=== PATIENT | female | born 1980 | race Two or more races ===

== ENCOUNTER 2024-05-29 09:02 | Emergency (ER) | payer MEDICAID, SELFPAY ==
[2024-05-29 09:24] VITALS: BP 133/97; PULSE 87; RESP 20; TEMP 37.6; O2SAT 97
--- NOTE | 2024-05-29 09:35 | XR_ITS ---
Examination: PA lateral chest 2 views TECHNIQUE: Upright AP lateral chest 2 views Exam date and time: May 29, 2024 0952 hours Comparison September 21, 2023 INDICATIONS: Coughing shortness of breath beginning 2 days ago. FINDINGS: Mild accentuation basilar bronchovascular markings No lobar pneumonia Normal heart size IMPRESSION: Basilar bronchitis pattern
--- NOTE | 2024-05-29 10:57 | EDNOTE_ITS ---
Upper Respiratory Inf. RME/HPI General Chief Complaint: Shortness of Breath/Dyspnea Stated Complaint: DIFFICULTY BREATHING, HOARSE/SORE THROAT Time Seen by Provider: 05/29/24 09:35 Arrival date/time: 05/29/24 09:02 43-year-old female presents to the emergency department complains of sore throat cough congestion runny nose patient reports symptoms ongoing for last couple of days Limitations: no limitations Related Data Previous Rx's ?Medication ?Instructions ?Recorded hydroxyzine pamoate 25 mg capsule 25 mg PO TID PRN anxiety #30 caps 07/21/19 (Vistaril) diclofenac sodium 75 mg 75 mg PO BID PRN pain #60 tabs 08/02/21 tablet,delayed release dicyclomine 20 mg tablet 20 mg PO TID PRN abdominal pain 07/17/23 #20 tabs sennosides 8.6 mg-docusate sodium 1 tab-cap PO QDAY PRN constipation 07/17/23 50 mg tablet (Colace 2-In-1) #20 tabs meclizine 25 mg tablet 25 mg PO QDAY PRN dizziness #14 09/21/23 tabs ondansetron HCl 4 mg tablet 4 mg PO Q8H #14 tabs 09/21/23 benzonatate 100 mg capsule 100 mg PO TID #14 caps 05/29/24 ibuprofen 600 mg tablet 600 mg PO Q6H #30 tabs 05/29/24 prednisone 10 mg tablet 30 mg (3 x 10 mg) PO BID 3 days 05/29/24 #18 tabs Allergies Allergy/AdvReac Type Severity Reaction Status Date / Time hydromorphone Allergy Intermediate Palpitation Verified 05/29/24 09:04 s Review of Systems Review of Systems Systems Reviewed: All systems reviewed, normal except as documented Constitutional Constitutional: Reports system reviewed and no additional complaints, except as documented, Denies fever(s) and Denies headache(s) Eyes Eyes: Reports system reviewed and no additional complaints, except as documented and Denies blurry vision ENT Ears, Nose, Mouth, and Throat: Reports system reviewed and no additional complaints, except as documented, Denies headache(s), Reports nasal congestion, Reports nasal discharge, Denies sinus pain, Denies sinus pressure, Reports sore throat and Denies vertigo Cardiovascular Cardiovascular: Reports system reviewed and no additional complaints, except as documented, Denies chest pain and Denies dyspnea Respiratory Respiratory: Reports system reviewed and no additional complaints, except as documented, Denies chest congestion, Denies cough and Denies dyspnea Gastrointestinal Gastrointestinal: Reports system reviewed and no additional complaints, except as documented and Denies abdominal pain Integumentary/Breasts Skin/Breast: Reports system reviewed and no additional complaints, except as documented and Denies rash Neurologic Neurologic: Reports system reviewed and no additional complaints, except as documented, Reports as per HPI, Denies headache(s) and Denies vertigo Past Medical History Past Medical History NEUROLOGIC: Negative Neurological Disorders CARDIAC: Negative Cardiac Disorders or Congestive Heart Failure RESPIRATORY: Negative Chronic Obstructive Pulmonary Disease (COPD) or Asthma GENITOURINARY: Positive Kidney Stones; Negative Renal Disease ENDOCRINE: Negative Diabetes Mellitus Type 1 or Diabetes Mellitus Type 2 HEMATOLOGIC: Negative Sickle Cell Disease Surgical History SURGICAL: Positive Hysterectomy (with left ovary removed) Social History SMOKING STATUS: Never smoker ED Exam General Limitations: Present no limitations General appearance: Present alert and in no apparent distress Head Head exam: Present atraumatic, normocephalic and normal inspection Eye Eye exam: Present normal appearance, PERRL and EOMI; Absent conjunctival injection ENT ENT exam: Present normal exam, normal oropharynx and mucous membranes moist Neck Neck exam: Present normal inspection, full ROM and trachea midline; Absent tenderness, meningismus or lymphadenopathy Chest Chest inspection: Present normal inspection and symmetric chest wall rise Respiratory Respiratory exam: Present normal lung sounds bilaterally; Absent respiratory distress Cardiovascular Cardiovascular exam: Present regular rate, normal rhythm and normal heart sounds Abdominal Exam Abdominal exam: Present soft and normal bowel sounds; Absent distention, tenderness, guarding, rebound or rigidity Extremities Exam Extremities exam: Present normal inspection and full ROM; Absent tenderness Back Exam Back exam: Present normal inspection and full ROM Neurological Exam Neurological exam: Present alert, oriented X3, CN II-XII intact, normal gait and reflexes normal; Absent motor sensory deficit Psychiatric Psychiatric exam: Present normal affect and normal mood Skin Skin exam: Present warm, dry, intact and normal color; Absent rash Course Quality Measures none Orders Category Date Time Status Bedside Influenza A&B Antigen Test NOW Care 05/29/24 09:35 Completed XR chest 2V Stat Exams 05/29/24 09:35 Completed Vital Signs Vital signs: Vital Signs Temperature 99.7 F 05/29/24 09:24 Pulse Rate 87 05/29/24 09:24 Respiratory Rate 20 05/29/24 09:24 Blood Pressure 133/97 H 05/29/24 09:24 Pulse Oximetry (%) 97 05/29/24 09:24 Oxygen Delivery Method Room Air 05/29/24 09:24 O2 saturation 97% room air within normal limits Upper Respiratory Infection MDM Narrative MDM Narrative:: 43-year-old female presents to the emergency department complains of sore throat cough congestion runny nose patient reports symptoms ongoing for last couple of days On exam symptoms highly consistent with viral illness Patient checked for influenza, strep throat and chest x-ray is obtained Chest x-ray does not show acute pneumonic infiltrates Influenza came back positive as expected strep is negative patient is no trismus or hoarseness of voice Patient discharged home in no distress to follow-up with primary care doctor in the next 24 to 48 hours and for any worsening symptoms to return to the ER immediately Patient data External records reviewed:: [facility] previous records Clinical information provided by:: patient Social determinants that could affect healthcare access:: none Patient has the following chronic illnesses:: None How is presenting disease/condition affected by chronic disease/condition?: no chronic disease Evaluation data The following diagnostics were reviewed and interpreted by me:: lab results and radiology exam(s) Lab and/or radiology exams considered but not ordered:: Lab and radiology obtained Interpretation Summary: Reviewed by me Medications / Prescriptions Medications or Prescriptions considered but not ordered:: Given Medication administrations:: Given Consultations Consultation(s) initiated? (list below): No Diagnosis Upper Respiratory Differential Diagnosis: upper respiratory infection, viral infection, bronchitis and pharyngitis Most likely diagnosis given after review of the tests above:: URI Admission Indicated Admission indicated?: not indicated Admission Request Was there a request for admission?: No Disposition Plan Disposition Plan: Discharge Discharge Attestation Discharge Attestation: The patient and all family members were given an opportunity to ask questions and understood the discharge instructions. Discharge instructions specifically effects, indications for sooner follow up or return to the emergency department, and the expected course of current diagnosis. Patient condition: Stable Discharge Plan Plan Patient Disposition: HOME (Self Care) Disposition Comment: Stable Prescriptions/Referrals Prescriptions/Med Rec: New prednisone 10 mg tablet 30 mg PO BID 3 Days Qty: 18 0RF benzonatate 100 mg capsule 100 mg PO TID Qty: 14 0RF ibuprofen 600 mg tablet 600 mg PO Q6H Qty: 30 0RF No Action hydroxyzine pamoate [Vistaril] 25 mg capsule 25 mg PO TID PRN (Reason: anxiety) Qty: 30 0RF diclofenac sodium 75 mg tablet,delayed release (DR/EC) 75 mg PO BID PRN (Reason: pain) Qty: 60 0RF meclizine 25 mg tablet 25 mg PO QDAY PRN (Reason: dizziness) Qty: 14 0RF ondansetron HCl 4 mg tablet 4 mg PO Q8H Qty: 14 0RF dicyclomine 20 mg tablet 20 mg PO TID PRN (Reason: abdominal pain) Qty: 20 0RF sennosides-docusate sodium [Colace 2-In-1] 8.6-50 mg tablet 1 tab-cap PO QDAY PRN (Reason: constipation) Qty: 20 0RF Referrals: Oswald Rivas [Primary Care Provider] - In 1 week Problem List Clinical Impression: Influenza Patient/Caregiver Discharge Instructions Education Materials: ED Influenza (Adult) Additional Instructions: Please follow up with your primary care doctor in the next 24-48hrs for any worsening symptoms return here immediately Print Language: Ukrainian Stand Alone Forms: [facility] [employer] Info., Work/School Release, Patient Portal Info Letter PA/AFFIRMATIVE ACTION OFFICER Supervising Physician PA/AFFIRMATIVE ACTION OFFICER Supervising Physician: Dr Cassidy
== END 2024-05-29 11:37 | disposition home or self-care (01) ==
PROVIDERS: Emergency Provider Emergency Medicine; PCP Family Medicine
DX: J11.1 Influenza due to unidentified influenza virus with other respiratory manifestations (principal)
CPT/HCPCS: 71046; 87400; 99283

== ENCOUNTER 2024-06-11 17:22 | Emergency (ER) | payer MEDICAID, SELFPAY ==
[2024-06-11 17:28] VITALS: BP 135/99; PULSE 91; RESP 19; TEMP 36.9; O2SAT 99
--- NOTE | 2024-06-11 17:39 | EDNOTE_ITS ---
<Statement entered by Patti Fletcher MD - 06/12/24 04:29> As co-signing physician, I was present and available for consult prn. I concur with the plan and care as documented by the midlevel provider. ED General RME/HPI General Chief complaint: Headache Stated complaint: HEADACHE Time Seen by Provider: 06/11/24 17:38 Arrival date/time: 06/11/24 17:22 CC: Headache HPI onset approximately 20 minutes prior to arrival EMS report tachycardia but otherwise stable vital signs. Patient states onset while standing in the shower 20 minutes prior to calling 911 sumatriptan she took at home did not work. Patient received IV Tylenol and route with no relief. Patient is awake alert oriented complaining of photosensitivity and nausea without active vomiting. No other complaints at this time. Related Data Previous Rx's ?Medication ?Instructions ?Recorded hydroxyzine pamoate 25 mg capsule 25 mg PO TID PRN anxiety #30 caps 07/21/19 (Vistaril) diclofenac sodium 75 mg 75 mg PO BID PRN pain #60 tabs 08/02/21 tablet,delayed release dicyclomine 20 mg tablet 20 mg PO TID PRN abdominal pain 07/17/23 #20 tabs sennosides 8.6 mg-docusate sodium 1 tab-cap PO QDAY PRN constipation 07/17/23 50 mg tablet (Colace 2-In-1) #20 tabs meclizine 25 mg tablet 25 mg PO QDAY PRN dizziness #14 09/21/23 tabs ondansetron HCl 4 mg tablet 4 mg PO Q8H #14 tabs 09/21/23 benzonatate 100 mg capsule 100 mg PO TID #14 caps 05/29/24 ibuprofen 600 mg tablet 600 mg PO Q6H #30 tabs 05/29/24 meloxicam 7.5 mg tablet 7.5 mg PO QDAY #10 tabs 06/11/24 Allergies Allergy/AdvReac Type Severity Reaction Status Date / Time hydromorphone Allergy Intermediate Palpitation Verified 06/11/24 17:44 s Review of Systems Review of Systems Narrative Review of Systems: GEN: No fever, no chills, no weight loss EYES: No discharge, no visual changes, no pain HEENT: No ear pain, no congestion, no sore throat PULM: No shortness of breath, no cough, no congestion CV: No chest pain, no dyspnea on exertion, no palpitations GI: No nausea, no vomiting, no diarrhea, no pain, no constipation : No frequency, no urgency, no dysuria MUSC/SKEL: No joint pain, no back pain SKIN: No rash PSYCH: No hallucinations, no depression HEME/LYMPH: No easy bleeding or bruising tendencies NEURO: No weakness, + headache Past Medical History Past Medical History NEUROLOGIC: Negative Neurological Disorders CARDIAC: Negative Cardiac Disorders or Congestive Heart Failure RESPIRATORY: Negative Chronic Obstructive Pulmonary Disease (COPD) or Asthma GENITOURINARY: Positive Kidney Stones; Negative Renal Disease ENDOCRINE: Negative Diabetes Mellitus Type 1 or Diabetes Mellitus Type 2 HEMATOLOGIC: Negative Sickle Cell Disease Surgical History SURGICAL: Positive Hysterectomy (with left ovary removed) Social History SMOKING STATUS: Never smoker ED Exam Narrative Physical exam: [General: Obese mild discomfort but not in any acute distress Head normocephalic HEENT: Within acceptable limits Neck is supple nontender Chest equal chest rise nontender to palpation Respiratory: Clear to auscultation no wheezes crackles or rubs CV: Rate rhythm is regular no murmurs rubs or clicks Abdomen is distended secondary to body habitus soft nontender no masses positive bowel sounds all 4 quadrants Back: No CVA tenderness no spinous process tenderness from cervical spine thoracic and lumbar spine Skin: Intact no petechiae rash induration ulceration or crepitus Extremities: Moving all extremity against resistance cap refill less than 2 seconds neurosensory intact Neuro: Awake alert oriented x3 Glascow coma 15 no focal deficits] Course Course Course Narrative: Patient's headache is diminished to a 3, photosensitivity nausea are all resolved. Patient will be discharged home with migraine. Quality Measures none Orders Category Date Time Status DiphenhydrAMINE INJ [Benadryl Inj] Med 06/11/24 17:38 Discontinued 25 mg IVP X1 ONE Ketorolac Inj [Toradol Inj] Med 06/11/24 17:38 Discontinued 30 mg IVP X1 ONE Prochlorperazine Inj [Compazine Inj] Med 06/11/24 17:38 Discontinued 10 mg IV X1 ONE Vital Signs Vital signs: Vital Signs Temperature 98.5 F 06/11/24 17:28 Pulse Rate 91 06/11/24 17:28 Respiratory Rate 19 06/11/24 17:28 Blood Pressure 135/99 H 06/11/24 17:28 Pulse Oximetry (%) 99 06/11/24 17:28 Oxygen Delivery Method Room Air 06/11/24 17:28 [facility] Patient data External records reviewed:: [facility] previous records and EMS form Clinical information provided by:: EMS Social determinants that could affect healthcare access:: none Patient has the following chronic illnesses:: None How is presenting disease/condition affected by chronic disease/condition?: uneffected by Evaluation data The following diagnostics were reviewed and interpreted by me:: other (specify) (None) Lab and/or radiology exams considered but not ordered:: None Interpretation Summary: Classic migraine Medications Medications considered but not ordered:: None Medication administrations:: Medication Administration History Discontinued Medications Diphenhydramine HCl (Diphenhydramine Inj 50 Mg/Ml Vial) 25 mg IVP X1 ONE Stop: 06/11/24 17:39 Last Admin: 06/11/24 18:18 Dose: 25 mg Documented By: HANNAH Ketorolac Tromethamine (Ketorolac Inj 30 Mg/Ml Vial) 30 mg IVP X1 ONE Stop: 06/11/24 17:39 Last Admin: 06/11/24 18:17 Dose: 30 mg Documented By: HANNAH Prochlorperazine Edisylate (Prochlorperazine Inj 5 Mg/Ml Vial 2 Ml) 10 mg IV X1 ONE; Protocol Stop: 06/11/24 17:39 Last Admin: 06/11/24 18:17 Dose: 10 mg Documented By: HANNAH None Consultations Consultation(s) initiated? (list below): No Diagnosis Differential Diagnosis ED Complaint MDM: Tension headache migraine complex migraine Most likely diagnosis given after review of the tests above:: Migraine Admission Indicated Admission indicated?: not indicated Explain why admission is indicated or not indicated:: Stable for discharge Admission Request Was there a request for admission?: No Disposition Plan Disposition Plan: Discharge Discharge Attestation Discharge Attestation: The patient and all family members were given an opportunity to ask questions and understood the discharge instructions. Discharge instructions specifically effects, indications for sooner follow up or return to the emergency department, and the expected course of current diagnosis. Patient condition: Stable Medical Decision Making Differential Diagnosis Differential Diagnosis: Tension headache migraine complex migraine Discharge Plan Plan Patient Disposition: HOME (Self Care) Patient condition on transfer: Stable Prescriptions/Referrals Prescriptions/Med Rec: New meloxicam 7.5 mg tablet 7.5 mg PO QDAY Qty: 10 0RF No Action hydroxyzine pamoate [Vistaril] 25 mg capsule 25 mg PO TID PRN (Reason: anxiety) Qty: 30 0RF diclofenac sodium 75 mg tablet,delayed release (DR/EC) 75 mg PO BID PRN (Reason: pain) Qty: 60 0RF meclizine 25 mg tablet 25 mg PO QDAY PRN (Reason: dizziness) Qty: 14 0RF ondansetron HCl 4 mg tablet 4 mg PO Q8H Qty: 14 0RF dicyclomine 20 mg tablet 20 mg PO TID PRN (Reason: abdominal pain) Qty: 20 0RF sennosides-docusate sodium [Colace 2-In-1] 8.6-50 mg tablet 1 tab-cap PO QDAY PRN (Reason: constipation) Qty: 20 0RF benzonatate 100 mg capsule 100 mg PO TID Qty: 14 0RF ibuprofen 600 mg tablet 600 mg PO Q6H Qty: 30 0RF Referrals: Oswald Rivas [Primary Care Provider] - In 1 week Problem List Clinical Impression: Migraine Patient/Caregiver Discharge Instructions Education Materials: ED Headache, Migraine, Classic Additional Instructions: Take the medicine as needed, follow-up with your primary care provider if there is a worsening of symptoms return the emergency room for reevaluation. Print Language: Romansh Stand Alone Forms: [facility] [employer] Info., Patient Portal Info Letter PA/ELECTRIC OPERATOR Supervising Physician PA/ELECTRIC OPERATOR Supervising Physician: Jerzy Laguna ENP
[2024-06-11 17:40] VITALS: PULSE 102; O2SAT 98
[2024-06-11 17:43] VITALS: BMI 33.3
[2024-06-11 18:13] VITALS: BP 130/88; PULSE 82; RESP 17; TEMP 36.5; O2SAT 96
[2024-06-11] MEDS: PROCHLORPERAZINE INJ 5 MG/ML VIAL 2 ML 10 MG IV (18:17)
[2024-06-11] MEDS: KETOROLAC INJ 30 MG/ML VIAL IVP (18:17)
[2024-06-11] MEDS: DiphenhydrAMINE INJ 50 MG/ML VIAL 25 MG IVP (18:18)
== END 2024-06-11 19:46 | disposition home or self-care (01) ==
PROVIDERS: Emergency Provider Emergency Medicine; PCP Family Medicine
DX: G43.109 Migraine with aura, not intractable, without status migrainosus (principal)
CPT/HCPCS: 96374; 96375; 99284; J0780; J1200; J1885